=== PATIENT | female | born 1985 | race Two or more races ===

== ENCOUNTER → 2017-10-24 | Outpatient (CLI) | payer OTHER ==
[2017-10-24 11:26] LABS: ADD MAN DIFF? NO
[2017-10-24 11:31] LABS: BASO % 0 % (0-3); EOS # 0.1 x10^3/uL (0.0-0.7); EOS % 1 % (0-3); HEMATOCRIT 34.1 % (36.0-47.0); HEMOGLOBIN 10.5 g/dL (12.0-15.5); LYMPH # 3.5 x10^3/uL (1.0-4.8); LYMPH % 33 % (24-48); MEAN CORPUSCULAR HEMOGLOBIN 23 pg (25-35); MEAN CORPUSCULAR HGB CONC 31 g/dL (31-37); MEAN CORPUSCULAR VOLUME 75 fL (79-100); MONO # 0.6 x10^3/uL (0.0-1.1); MONO % 5 % (0-9); NEUT # 6.5 x10^3uL (1.8-7.7); NEUT % 61 % (31-73); PLATELET COUNT 521 x10^3/uL (140-400); RED BLOOD COUNT 4.56 x10^6/uL (3.50-5.40); RED CELL DISTRIBUTION WIDTH 17.1 % (11.5-14.5); WHITE BLOOD COUNT 10.7 x10^3/uL (4.0-11.0)
[2017-10-24 12:07] LABS: FREE T4 1.29 ng/dL (0.76-1.46)
[2017-10-24 12:07] LABS: THYROID STIM HORMONE (TSH) 3.887 uIU/mL (0.358-3.74)
== END | disposition home or self-care (01) ==
LOC: LAB 11:15
DX: Z01.419 Encounter for gynecological examination (general) (routine) without abnormal findings (principal); N92.0 Excessive and frequent menstruation with regular cycle
CPT/HCPCS: 36415; 84439; 84443; 85025

== ENCOUNTER → 2017-11-03 | Outpatient (CLI) | payer OTHER | END | disposition home or self-care (01) | LOC: US 07:01 | DX: N92.0 Excessive and frequent menstruation with regular cycle (principal); R93.8 Abnormal findings on diagnostic imaging of other specified body structures | CPT/HCPCS: 76856 ==